=== PATIENT | male | born 1990 | race Asian ===

== ENCOUNTER → 2022-09-08 14:57 | Outpatient (CLI) | payer BC, SELFPAY ==
--- NOTE | ~2022-09-08 | XR_ITS ---
XR ankle RT 2V DATE: 09/08/2022 15:09 INDICATION: Right ankle pain. No injury. Gout. TECHNIQUE: AP and lateral views COMPARISON: 10/01/2005 right ankle FINDINGS: No fracture or dislocation of the ankle or disruption of the ankle mortise is detected. No periosteal reaction or bone destruction. Mild plantar calcaneal enthesopathy without associated erosive change or periostitis. IMPRESSION: Mild plantar calcaneal enthesopathy Reviewed, dictated and finalized at location [facility]
== END ==
PROVIDERS: PCP Emergency Medicine; Visit Provider Emergency Medicine
DX: M77.31 Calcaneal spur, right foot (principal)
CPT/HCPCS: 73600

== ENCOUNTER 2022-11-06 13:58 | Emergency (ER) | payer BC, SELFPAY ==
[2022-11-06 14:18] VITALS: BP 126/87; PULSE 94; RESP 16; TEMP 36.6; O2SAT 100
--- NOTE | 2022-11-06 14:28 | ED.BACK ---
HPI - Back Pain/Injury General Chief Complaint: Back Pain/Injury Stated Complaint: LOW BACK & NECK PAIN/TIGHTNESS Time Seen by Provider: 11/06/22 14:27 Source: patient and RN notes reviewed Mode of arrival: ambulatory Limitations: no limitations History of Present Illness HPI Narrative: 32-year-old male presents with concern for back pain. He reports he was having pain between right neck and right shoulder in the scapular area for about a week. He denies any injury or trauma. He reports 2 days ago he began having low right-sided back pain without injury. 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 Reports he has had back pain in the past, he sees a chiropractor weekly. He denies loss of bowel or bladder function, perianal anesthesia, abdominal pain. Reports he is taking Tylenol without relief MD elicited complaint: back pain Related Data Allergies Allergy/AdvReac Type Severity Reaction Status Date / Time No Known Allergies Allergy Verified 11/06/22 14:22 Review of Systems Review of Systems: CONSTITUTIONAL: Denies malaise, chills, sweats, or fever. CARDIOVASCULAR: Denies chest pain, palpitations, or edema. RESPIRATORY: Denies cough or dyspnea. GASTROINTESTINAL: Denies abdominal pain, nausea, vomiting, diarrhea, loss of bowel function GENITOURINARY: Denies dysuria, hematuria, frequency, loss of bladder function. SKIN: Denies rash or itching. MUSCULOSKELETAL: Reports right low back pain, pain in the right shoulder blade NEUROLOGIC: Denies numbness, weakness, or headache. All systems reviewed & are unremarkable except as noted in HPI and below PMFSH Comments At time of signature, agree with nursing past medical, surgical, social and family history. There is no relevant family history pertinent to the presenting complaint Exam Narrative: GENERAL: Well-appearing, well-nourished, and in no acute distress. HEAD: Normocephalic, atraumatic. EYES: PERRLA and EOMI. NECK: Supple. No lymphadenopathy. CHEST: Clear to auscultation. No respiratory distress. HEART: Regular rate and rhythm. Distal pulses palpable and equal, cap refill <3 seconds ABDOMEN: Soft, nontender, nondistended, normal active bowel sounds, no palpable or pulsatile masses. No CVA tenderness MUSCULOSKELETAL: Normal range of motion and strength in all extremities; 5/5 strength with hip flexion and extension, dorsiflexion and extension, knee flexion and extension, plantar flexion and extension. Normal sensation in dermatomal distributions with sensitivity to light touch and pain. No midline back tenderness to palpation. No paraspinal tenderness. Transfers from lying to sitting to standing. SKIN: Warm, dry, no rash. No ecchymosis, erythema, open wounds to back. NEURO: No focal deficits. Alert and oriented x3. Reflexes intact. Normal gait. PSYCH: Normal mood and affect Course Course Emergency Course: Patient is aware of diagnosis, understands and agrees to treatment plan. Anticipatory guidance given. Patient agrees to follow-up as directed and is aware of reasons to seek care at the emergency department. Portions of this record may have been created with voice recognition software Level of Care: Express Care Visit Vital Signs Vital signs: Vital Signs Temperature 97.8 F 11/06/22 14:18 Pulse Rate 94 11/06/22 14:18 Respiratory Rate 16 11/06/22 14:18 Blood Pressure 126/87 11/06/22 14:18 Pulse Oximetry 100 11/06/22 14:18 Temperature 97.8 F 11/06/22 14:18 Pulse Rate 94 11/06/22 14:18 Respiratory Rate 16 11/06/22 14:18 Blood Pressure 126/87 11/06/22 14:18 Pulse Oximetry 100 11/06/22 14:18 Reviewed. MDM - Back Pain/Injury MDM Narrative Medical decision making narrative: No risk factors or findings concerning for epidural abscess, diskitis, vertebral osteomyelitis, cord compression, cauda equina, vertebral fracture or bone malignancy, AAA, or pyelonephritis. Patient instructed to consider further imaging and workup through
== END 2022-11-06 14:38 | disposition home or self-care (01) ==
PROVIDERS: Emergency Provider Nurse Practitioner; PCP Emergency Medicine
DX: M54.50 Low back pain, unspecified (principal); M25.511 Pain in right shoulder; M10.9 Gout, unspecified
CPT/HCPCS: 99203; G0463

== ENCOUNTER 2022-12-05 10:37 | Emergency (ER) | payer BC, SELFPAY ==
[2022-12-05 10:46] VITALS: BP 137/97; PULSE 73; RESP 16; TEMP 36.3; O2SAT 100
--- NOTE | 2022-12-05 10:51 | ED.BACK ---
HPI - Back Pain/Injury General Chief Complaint: Back Pain/Injury Stated Complaint: lower back pain Time Seen by Provider: 12/05/22 10:50 Source: patient Mode of arrival: ambulatory Limitations: no limitations History of Present Illness HPI Narrative: Shyam is a 32-year-old male patient presenting to clinic today with complaints of low back pain. He reports he developed low back pain yesterday. States he sleeps in a bed with his for he was having difficult time getting out of the bed due to the back pain. No known injury. States that he is having sharp pains in his lower back and today the pain started radiating down his right leg. Pain is worse with sudden movements. He denies any saddle anesthesia or loss of bowel or bladder. Rates pain 10/10 when he has sudden movements Related Data Allergies Allergy/AdvReac Type Severity Reaction Status Date / Time No Known Allergies Allergy Verified 11/06/22 14:22 Review of Systems Review of Systems: Pertinent positives per HPI. Patient denies any fever, chills, rash, headache, visual changes, dizziness, cough, runny nose, sore throat, shortness of breath, chest pain, palpitations, nausea, vomiting, diarrhea, constipation, abdominal pain, or any urinary issues. PMFSH Comments At the time of my signature, I reviewed and agree with the nursing past medical, surgical, social, and family history. There is no relevant family history pertinent to the patient complaint. Exam Narrative: General: Well-developed, well nourished, in no apparent distress Head: Normocephalic, atraumatic. Cardio: Regular rate and rhythm, s1 and s2 normal, no murmur appreciated. Resp: Clear to auscultation bilaterally, no rhonchi, rales, wheezing or rubs. Musculoskeletal: No deformity, tender to palpation over bilateral low back paraspinous muscles, grossly normal range of motion, patellar reflex 1+ bilaterally, negative foot drop, bilateral lower muscle strength strong and equal, peripheral pulse strong, no edema, no cyanosis, normal gait and station Course Course Emergency Course: Portions of this record may have been created with voice recognition software. Level of Care: Express Care Visit Vital Signs Vital signs: Vital Signs Temperature 36.3 C L 12/05/22 10:46 Pulse Rate 73 12/05/22 10:46 Respiratory Rate 16 12/05/22 10:46 Blood Pressure 137/97 H 12/05/22 10:46 Pulse Oximetry 100 12/05/22 10:46 Temperature 36.3 C L 12/05/22 10:46 Pulse Rate 73 12/05/22 10:46 Respiratory Rate 16 12/05/22 10:46 Blood Pressure 137/97 H 12/05/22 10:46 Pulse Oximetry 100 12/05/22 10:46 Vital signs reviewed MDM - Back Pain/Injury MDM Narrative Medical decision making narrative: At the time of visit patient is resting comfortably on the exam table. I suspect patient has a low back strain with sciatica. Will send in prescription for prednisone and Flexeril. Toradol 60 mg IM given in the clinic today. Differential Diagnosis Differential diagnosis: Likely lumbar radiculopathy, sciatica, strain of lumbar region, discitis and other (Herniated disc) Discharge Plan Discharge Clinical Impression: Acute bilateral low back pain with right-sided sciatica Patient Disposition: Home, Self-Care Condition: Stable Instructions: Antibiotic Form, Sciatica (ED), Acute Low Back Pain (ED) Additional Instructions: Toradol 60 mg IM given in the clinic today for pain Take any prescription medication only as prescribed-Flexeril and prednisone Be mindful of sedation precautions given to you if taking a muscle relaxer. May use heat or ice to the affected area Consider massage or chiropractor adjustment if this was discussed with provider May use blue emu, lidocaine patches, or asper cream to affected area- do not apply heat or ice directly over cream- can cause burn. Complete appropriate back stretching exercises. Follow up with your PCP in 3-5 days if symptom persist. Prescriptions
[2022-12-05] MEDS: KETOROLAC (*BKC) 60 MG/2 ML VIAL IM (10:56)
== END 2022-12-05 11:19 | disposition home or self-care (01) ==
PROVIDERS: Emergency Provider Nurse Practitioner Family; PCP Emergency Medicine
DX: M54.41 Lumbago with sciatica, right side (principal)
CPT/HCPCS: 96372; 99213; G0463; J1885

== ENCOUNTER 2023-07-09 11:45 | Emergency (ER) | payer OTHER, SELFPAY ==
[2023-07-09 11:57] VITALS: BP 135/80; PULSE 77; RESP 16; TEMP 36.7; O2SAT 99
--- NOTE | 2023-07-09 12:25 | ED.URI ---
HPI - URI/Sore Throat General Chief Complaint: Upper Respiratory Infection Stated Complaint: SORE THROAT/COUGH/CONGESTION/JOSEPH/BODY ACHES Source: patient and RN notes reviewed History of Present Illness HPI Narrative: 32-year-old male presents to urgent care with complaints of sore throat, cough, congestion and chills. Patient states the symptoms have been going on for 2 days denies any chest pain, shortness of, vomiting diarrhea, or ear pain. Patient has been taking an [id number] cold flu medication with minimal relief. Related Data Allergies Allergy/AdvReac Type Severity Reaction Status Date / Time No Known Allergies Allergy Verified 11/06/22 14:22 Review of Systems Review of Systems: Pertinent positives and pertinent negatives per HPI. PMFSH Comments At the time of my signature, I reviewed and agree with the nursing past medical, surgical, social, and family history. There is no relevant family history pertinent to the patient complaint. Exam Narrative: GENERAL: This is a well-nourished, well-developed patient, in no apparent distress. HEAD: normocephalic, atraumatic. EYES: Sclera clear/white. Vision is grossly intact. EARS: External ears normal, auditory canals clear and without drainage, TMs normal without perforation. Hearing grossly intact. NOSE: positive congestion THROAT: Mucous membranes moist, posterior pharynx erythemic NECK: Neck supple, non-tender without lymphadenopathy, masses or thyromegaly. CARDIOVASCULAR: Regular rate and rhythm without murmurs, gallops, or rubs. RESPIRATORY: Clear to auscultation. Breath sounds equal bilaterally. No wheezes, rales, or rhonchi. SKIN: warm, intact with no suspicious lesions or rash, good texture and turgor. NEURO: awake, alert, and oriented to person, place and time. There were no obvious focal neurologic abnormalities. Course Course Level of Care: Express Care Visit Vital Signs Vital signs: Vital Signs Pulse Rate 77 07/09/23 11:57 Respiratory Rate 16 07/09/23 11:57 Blood Pressure 135/80 07/09/23 11:57 Pulse Oximetry 99 07/09/23 11:57 Pulse Rate 77 07/09/23 11:57 Respiratory Rate 16 07/09/23 11:57 Blood Pressure 135/80 07/09/23 11:57 Pulse Oximetry 99 07/09/23 11:57 Reviewed MDM - URI/Sore Throat MDM Narrative Medical decision making narrative: Viral illness may last between 7-21 days; antibiotics do not cure viral illness and are NOT recommended at this time. Also, recommend symptomatic treatment includes: rest, fluids, and increase humidity of the air at home. Recommend Acetaminophen as directed on the bottle to reduce fever, pain, headache. Please schedule a follow-up visit with your personal physician for further evaluation and treatment within 3-5days. If your symptoms persist, change or worsen significantly before you can contact your personal physician then please, without delay, go to the emergency department for further evaluation. Differential Diagnosis Differential diagnosis: Likely upper respiratory infection, sinusitis, viral infection and pharyngitis Lab Data Attestation: I reviewed the patient's lab results. Labs: Strep Screen Presumptive Negative *(Reference Range: Negative)* Critical Care Time Critical Care Time Critical Care Time: No Discharge Plan Discharge Clinical Impression: Viral infection Patient Disposition: Home, Self-Care Condition: Stable Instructions: Viral Syndrome (ED) Additional Instructions: Viral illness may last between 7-21 days; antibiotics do not cure viral illness and are NOT recommended at this time. Also, recommend symptomatic treatment includes: rest, fluids, and increase humidity of the air at home. Recommend Acetaminophen as directed on the bottle to reduce fever, pain, headache. Please schedule a follow-up visit with your personal physician for further evaluation and treatment wi
== END 2023-07-09 12:35 | disposition home or self-care (01) ==
PROVIDERS: Emergency Provider Nurse Practitioner Family; PCP Emergency Medicine
DX: B34.9 Viral infection, unspecified (principal)
CPT/HCPCS: 87081; 87880; 99213; G0463

== ENCOUNTER 2023-07-25 18:11 | Emergency (ER) | payer OTHER, SELFPAY ==
[2023-07-25 18:17] VITALS: BP 129/75; PULSE 78; RESP 20; TEMP 36.3; O2SAT 99
--- NOTE | 2023-07-25 18:39 | ED.URI ---
HPI - URI/Sore Throat General Chief Complaint: Upper Respiratory Infection Stated Complaint: BODY ACHEST/SINUS CONGESTION/COUGH/FEVER Time Seen by Provider: 07/25/23 18:33 Source: patient and RN notes reviewed Mode of arrival: ambulatory Limitations: no limitations History of Present Illness HPI Narrative: Patient presents today with a 2 day history of body aches, congestion, cough. Denies shortness of breath or chest pain. He has been taking Tylenol and NyQuil with mild relief. Reports 3-month-old child was diagnosed with COVID today. Denies history of asthma or COPD. Related Data Home Medications Medication Instructions Recorded Confirmed cetirizine 10 mg tablet (Zyrtec) 10 mg PO DAILY 07/25/23 07/25/23 Allergies Allergy/AdvReac Type Severity Reaction Status Date / Time No Known Allergies Allergy Verified 07/25/23 18:19 Review of Systems Review of Systems: CONSTITUTIONAL: Denies fever, chills, or sweats.+ body aches EYES: Denies visual changes, redness, or discharge. ENT: Denies rhinorrhea, sore throat, or otalgia.+ congestion CARDIOVASCULAR: Denies chest pain, palpitations, or edema. RESPIRATORY: Denies dyspnea.+ cough GASTROINTESTINAL: Denies abdominal pain, nausea, vomiting, or diarrhea. GENITOURINARY: Denies dysuria or hematuria. SKIN: Denies rash, itching, or wounds. MUSCULOSKELETAL: Denies back pain, joint pain, or myalgia. NEUROLOGIC: Denies headache, numbness, tingling, or weakness. PSYCH: Denies depression or anxiety. PMFSH Comments At time of signature, I have reviewed and agree with nursing past medical, surgical, social and family history unless otherwise noted. Please see nursing chart for further information. There is no relevant family history pertinent to the presenting complaint Exam Narrative: GENERAL: Mildly ill-appearing, well-nourished, and in no acute distress. HEAD: Normocephalic, atraumatic. EYES: EOMI. No redness or drainage. Conjunctivae normal. ENT: Mucous membranes pink and moist. Nares congested. No rhinorrhea. TMs normal bilaterally. Throat mildly erythematous without edema or exudate. Uvula midline. NECK: Normal AROM. Supple. No lymphadenopathy. CHEST: No respiratory distress. Clear to auscultation. HEART: Regular rate and rhythm. No murmur appreciated. EXTREMITIES: Normal range of motion. No edema. SKIN: Warm, dry, no rash. Capillary refill normal. Normal skin turgor. NEURO: No focal deficits. Alert and oriented x3. Gait steady. PSYCH: Normal affect. No signs of depression or anxiety. Course Course Level of Care: Express Care Visit Vital Signs Vital signs: Vital Signs Temperature 97.4 F L 07/25/23 18:17 Pulse Rate 78 07/25/23 18:17 Respiratory Rate 20 07/25/23 18:17 Blood Pressure 129/75 07/25/23 18:17 Pulse Oximetry 99 07/25/23 18:17 Oxygen Delivery Room Air 07/25/23 18:17 Temperature 97.4 F L 07/25/23 18:17 Pulse Rate 78 07/25/23 18:17 Respiratory Rate 07/25/23 18:17 Blood Pressure 129/75 07/25/23 18:17 Pulse Oximetry 99 07/25/23 18:17 Oxygen Delivery Room Air 07/25/23 18:17 Reviewed MDM - URI/Sore Throat MDM Narrative Medical decision making narrative: COVID-19 positive. Discussed [id number] medication for symptoms. No prescription medications indicated at this time. Anticipatory guidance given. Lab Data Attestation: I reviewed the patient's lab results. Lab results narrative: COVID-19 positive Labs: Influenza A Screen Negative Reference Range: Negative Influenza B Screen Negative Reference Range: Negative Critical Care Time Critical Care Time Critical Care Time: No Discharge Plan Discharge Clinical Impression: COVID-19 Patient Disposition: Home, Self-Care Condition: Stable Instructions: COVID-19 (Coronavirus Disease 2019)
== END 2023-07-25 18:45 | disposition home or self-care (01) ==
PROVIDERS: Emergency Provider Nurse Practitioner; PCP Emergency Medicine
DX: U07.1 COVID-19 (principal)
CPT/HCPCS: 87426; 87804; 99213; C9803; G0463

== ENCOUNTER 2023-11-25 12:51 | Emergency (ER) | payer OTHER, SELFPAY ==
[2023-11-25 13:04] VITALS: BP 131/88; PULSE 94; RESP 16; TEMP 36.9; O2SAT 98
--- NOTE | 2023-11-25 13:14 | ED.LOWEXIN ---
HPI - Extremity Injury (Lower) General Chief Complaint: Extremity Injury, Lower Stated Complaint: Right Ankle Pain Source: patient and RN notes reviewed Mode of arrival: ambulatory Limitations: no limitations History of Present Illness HPI Narrative: 33-year-old male presents with concern for 2 day history of gout pain to the right ankle. Reports history of gout. Reports pain worsened after working on last night with redness, swelling, warmth. Denies fever, injury. MD complaint: ankle injury Related Data Home Medications Medication Instructions Recorded Confirmed cetirizine 10 mg tablet (Zyrtec) 10 mg PO DAILY 07/25/23 11/25/23 Allergies Allergy/AdvReac Type Severity Reaction Status Date / Time No Known Allergies Allergy Verified 11/25/23 12:58 Review of Systems Review of Systems: CONSTITUTIONAL: Denies malaise, chills, sweats, or fever. CARDIOVASCULAR: Denies chest pain, palpitations, or edema. RESPIRATORY: Denies cough or dyspnea. SKIN: Denies rash or itching, bruising, redness MUSCULOSKELETAL: Reports redness, swelling, pain to the right ankle NEUROLOGIC: Denies numbness, weakness All systems reviewed & are unremarkable except as noted in HPI and below PMFSH Comments At time of signature, agree with nursing past medical, surgical, social and family history. There is no relevant family history pertinent to the presenting complaint Exam Narrative: GENERAL: Well-appearing, well-nourished, and in no acute distress. HEAD: Normocephalic, atraumatic. EYES: PERRLA, conjunctivae clear NECK: Supple. CHEST: Speaks in full sentences. No respiratory distress. HEART: Regular rate and rhythm. Normal and equal peripheral pulses. EXTREMITIES: Right ankle, foot, digits grossly normal strength and sensation, normal range of motion. Mild edema, warmth, no ecchymosis. Normal sensation with sensitivity to light touch and pain. No point tenderness. No open wounds, no skin tenting, no devitalized tissue or atrophy, no trophic changes, no obvious deformity, alignment normal, nearby joints and structures intact. Distal pulses palpable and equal bilaterally, skin warm, dry, pink. Capillary refill less than 3 seconds. SKIN: Warm, dry, no rash. NEURO: Alert and oriented x3. PSYCH: Normal mood and affect Course Course Emergency Course: Patient is aware of diagnosis, understands and agrees to treatment plan. Anticipatory guidance given. Patient agrees to follow-up as directed and is aware of reasons to seek care at the emergency department. Portions of this record may have been created with voice recognition software Level of Care: Express Care Visit Vital Signs Vital signs: Vital Signs Temperature 98.4 F 11/25/23 13:04 Pulse Rate 94 11/25/23 13:04 Respiratory Rate 16 11/25/23 13:04 Blood Pressure 131/88 11/25/23 13:04 Pulse Oximetry 98 11/25/23 13:04 Temperature 98.4 F 11/25/23 13:04 Pulse Rate 94 11/25/23 13:04 Respiratory Rate 16 11/25/23 13:04 Blood Pressure 131/88 11/25/23 13:04 Pulse Oximetry 98 11/25/23 13:04 Reviewed. MDM - Extremity Injury (Lower) MDM Narrative Medical decision making narrative: Exam findings show no acute concerns or changes; patient is non-toxic appearing and is in no distress. Patient is appropriate for outpatient treatment and follow-up. Critical Care Time Critical Care Time Critical Care Time: No Discharge Plan Discharge Clinical Impression: Gout Patient Disposition: Home, Self-Care Condition: Stable Instructions: Gout (ED) Additional Instructions: 1) Please follow-up with your primary care doctor in the next 1-2 days. 2) If you have any worsening of symptoms or any other urgent concerns please go to the ER. 3) Please take medications as prescribed and continue taking your home medications as usual. 4) Please read and follow information included in discharge instructions. Prescriptions: New colchicine 0.6 mg capsule
== END 2023-11-25 13:33 | disposition home or self-care (01) ==
PROVIDERS: Emergency Provider Nurse Practitioner; PCP Emergency Medicine
DX: M10.9 Gout, unspecified (principal); M19.90 Unspecified osteoarthritis, unspecified site
CPT/HCPCS: 99213; G0463

== ENCOUNTER 2024-03-01 08:30 | Emergency (ER) | payer OTHER, SELFPAY ==
[2024-03-01 08:45] VITALS: BP 130/75; PULSE 98; RESP 16; TEMP 37.1; O2SAT 99
--- NOTE | 2024-03-01 08:50 | ED.URI ---
HPI - URI/Sore Throat General Chief Complaint: Upper Respiratory Infection Stated Complaint: Sore Throat Time Seen by Provider: 03/01/24 08:50 Source: patient, RN notes reviewed and old records reviewed Mode of arrival: ambulatory Limitations: no limitations History of Present Illness HPI Narrative: 33 year old male with complaints of sore throat for the past 3 days which is burning with increased pain with swallowing with some occasional cough noted. Patient reports that he has not had any fevers but feels fatigued and does not feel well. Patient reports that he has been taking his daily Zyrtec but has not taken any other OTC medications for his symptoms. MD elicited complaint: sore throat Pertinent past history: other (sinus problems) Onset (ago): day(s) (3) Consistency: constant Pain scale (0-10): 7 Able to tolerate fluids by mouth: Yes Exacerbating factors: swallowing Treatments prior to arrival: other (Zyrtec) Related Data Home Medications Medication Instructions Recorded Confirmed cetirizine 10 mg tablet (Zyrtec) 10 mg PO DAILY 07/25/23 03/01/24 Allergies Allergy/AdvReac Type Severity Reaction Status Date / Time No Known Allergies Allergy Verified 03/01/24 08:43 Review of Systems Review of Systems: CONSTITUTIONAL: Reports malaise, no chills, sweats, or fever, states fatigue EYES: Denies visual changes, redness, or discharge. ENT: Reports rhinorrhea, congestion, no sinus pain,no otalgia and positive sore throat. CARDIOVASCULAR: Denies chest pain, palpitations, or edema. RESPIRATORY: Reports occasional cough.? Denies dyspnea. GASTROINTESTINAL: Denies abdominal pain, nausea, vomiting, diarrhea SKIN: Denies rash or itching. MUSCULOSKELETAL: Denies myalgia. NEUROLOGIC: Denies headache. All systems reviewed & are unremarkable except as noted in HPI and below PMFSH Past Medical History Medical History (Updated 03/01/24 @ 09:12 by Setlla Marie NP) Arthritis Fx wrist Gout History of sinus problem Otitis media Pneumonia Surgical History Surgical History H/O hemorrhoidectomy Social History Social History (Updated 03/01/24 @ 09:12 by Stella Marie NP) Smoking packs per day: 0.5 Smoking cigarettes per day: 10.0 Smoking status: Current every day smoker Tobacco type: cigarettes Alcohol intake: current Alcohol use details: social Substance use type: does not use Living arrangements: with family Gender identity (if verbalized by the patient): Male Comments At time of signature, agree with nursing past medical, surgical, social and family history. There is no relevant family history pertinent to the presenting complaint Exam Narrative: GENERAL: Well-appearing, well-nourished, and in no acute distress. HEAD: Normocephalic EYES: PERRLA, conjunctivae clear ENT: Nares clear, turbinates edematous and erythematous, clear discharge. Mucous membranes moist. TM pearly clemons with dull light reflex bilaterally; no tragal tenderness. Oropharynx erythematous without lesions. Tonsils red enlarged and without exudate, no drooling, no hoarseness, no trismus, uvula midline.some post nasal drainage. NECK: Supple. lymphadenopathy CHEST: Clear to auscultation, breath sounds equal. No wheezing, rhonchi, rales, or stridor. No respiratory distress, speaks in full sentences.occasional cough noted SAO2 99% on room air HEART: Regular rate and rhythm. No murmur heard. SKIN: Warm, dry, no rash. NEURO: Alert and oriented x3. PSYCH: Normal mood and affect Course Course Emergency Course: Patient is aware of diagnosis, understands and agrees to treatment plan.? Anticipatory guidance given.? Patient agrees to follow-up as directed and is aware of reasons to seek care at the emergency department. Portions of this record may have been created with voice recognition software Level of Care: [facility] Visit V
== END 2024-03-01 09:08 | disposition home or self-care (01) ==
PROVIDERS: Emergency Provider Registered Nurse; PCP Emergency Medicine
DX: J02.9 Acute pharyngitis, unspecified (principal); F17.210 Nicotine dependence, cigarettes, uncomplicated; M19.90 Unspecified osteoarthritis, unspecified site; M10.9 Gout, unspecified
CPT/HCPCS: 87081; 87880; 99213; G0463

== ENCOUNTER 2024-11-20 09:22 | Emergency (ER) | payer OTHER, SELFPAY ==
--- NOTE | ~2024-11-20 | XR_ITS ---
XR lumbar spine 2-3V 11/20/2024 09:41 Indication: Low back pain for 5 days Procedure: 3 views lumbar spine Comparison: No prior studies for comparison. Findings: Vertebral body heights are maintained. Normal lumbar lordosis. Pedicles intact. Transverse processes are normal. Sacral foramen are symmetric. There is disc narrowing and endplate hypertrophy at L4-5 and L5-S1 L5-S1. No evidence for spondylolisthesis. Impression: 1: Mild lumbar spondylosis. Reviewed, dictated and finalized at location B. Impression: 1: Mild lumbar spondylosis.
--- NOTE | 2024-11-20 09:25 | ED.BACK ---
HPI - Back Pain/Injury General Chief Complaint: Back Pain/Injury Stated Complaint: LOW BACK PAIN Source: patient and RN notes reviewed Mode of arrival: ambulatory Limitations: no limitations History of Present Illness HPI Narrative: Patient is a 34-year-old male that presents to the [facility] with complaints of right-sided low back pain. He states that the pain has been present for the last few days. It increases in severity with ambulating and movement. He denies numbness. Denies dysfunction of bladder or bowel. Denies urinary symptoms. Denies known injury but states that he frequently lifts shingles at work. Related Data Home Medications ?Medication ?Instructions ?Recorded ?Confirmed ?Last Taken ?Type cetirizine 10 mg tablet (Zyrtec) 10 mg PO DAILY 07/25/23 03/01/24 Unknown History Allergies Allergy/AdvReac Type Severity Reaction Status Date / Time No Known Allergies Allergy Verified 03/01/24 08:43 Review of Systems Review of Systems: CONSTITUTIONAL: Denies fever, chills, or sweats. EYES: Denies visual changes, redness, or discharge. ENT: Denies otalgia and sore throat CARDIOVASCULAR: Denies chest pain, palpitations, or edema. RESPIRATORY: Denies cough or dyspnea. GASTROINTESTINAL: Denies abdominal pain, nausea, vomiting, or diarrhea. GENITOURINARY: Denies dysuria or hematuria. SKIN: Denies rash or itching. MUSCULOSKELETAL: Denies myalgia. Reports back pain. NEUROLOGIC: Denies headache, numbness, or weakness. Pertinent positives per HPI. [facility] Past Medical History Medical History Arthritis History of sinus problem Fx wrist Otitis media Pneumonia Gout Surgical History Surgical History H/O hemorrhoidectomy Social History Social History Smoking packs per day: 0.5 Smoking cigarettes per day: 10.0 Smoking status: Current every day smoker Tobacco type: cigarettes Alcohol intake: current Alcohol use details: social Substance use type: does not use Living arrangements: with family Gender identity (if verbalized by the patient): Male Comments At the time of my signature, I reviewed and agree with the nursing past medical, surgical, social, and family history. There is no relevant family history pertinent to the patient complaint. Exam Narrative: GENERAL: This is a well-nourished, well-developed patient, in no apparent distress. HEAD: normocephalic, atraumatic. EYES: Sclera clear/white. Vision is grossly intact. EARS: External ears normal. Hearing grossly intact. NOSE: External nose normal with no obvious nasal discharge, nares without redness, no rhinorrhea. THROAT: Mucous membranes moist, posterior pharynx clear. NECK: Neck supple, non-tender without lymphadenopathy, masses or thyromegaly. CARDIOVASCULAR: Regular rate and rhythm without murmurs, gallops, or rubs. RESPIRATORY: Clear to auscultation. Breath sounds equal bilaterally. No wheezes, rales, or rhonchi. GASTROINTESTINAL: Abdomen soft, non-tender, nondistended. Bowel sounds are active. No hepato-splenomegaly, or palpable masses. No guarding. SKIN: warm, intact with no suspicious lesions or rash, good texture and turgor. NEURO: awake, alert, and oriented to person, place and time. There were no obvious focal neurologic abnormalities. EXTREMITIES: No clubbing, cyanosis, or edema. No joint tenderness, effusion, or edema noted. BACK: Tenderness in the paraspinous muscles in the lumbar area. No tenderness over the spinous processes of the lumbar vertebrae. LEGS: Normal strength including dorsi-flexion and plantar flexion of the feet. Positive right straight leg test, normal and symmetrical knee and ankle reflexes. Course Course Level of Care: Express Care Visit Vital Signs Vital signs: Vital Signs Temperature 97 F L 11/20/24 09:30 Pulse Rate 72 11/20/24 09:30 Respiratory Rate 16 11/20/24 09:30 Blood Pressure 126/83 11/20/24 09:30 Pulse Oximetry 100 11/20/24 09:30 Temperature 97 F L 11/20/24 09:30 Pulse Rate 72 11/20/24 09:30 Respiratory Rate 16 11/20/24 09:30 Blood Pressure 126/83 11/20/24 09:30 Pulse Oximetry 100 11/20/24 09:30 Reviewed MDM - Back Pain/Injury MDM Narrative Medical decision making narrative: Use the RICE method at home. May take ibuprofen and/or Tylenol if needed. If symptoms persist in 1 week after conservative treatment, follow-up with specialist. Differential Diagnosis Differential diagnosis: Likely lumbar radiculopathy, sciatica and strain of lumbar region Imaging Data Attestation: I personally reviewed and interpreted this imaging study as follows: Radiologist's impression: ? Magaly Mack APRN [facility] ?2? All Patients ?2? [place] ?4? [place] ?1? [place] ?2? [facility] GE Room 2? 34m? 4? ?? [facility] [place]? Shyam Benson? 34? ?? Back Pain/Injury? In Room? REG ER? Sami Shane? Magaly Mack ? Aye Back Injury/Pain ED: Draft? Order BP 126/83 Pulse 72 Resp 16 Temp 97 F O2 Sat 100% XR lumbar ... [facility] Room 2? 1h 55m? 4? ?? [facility] [place]? Doroteo Gerber W? 50? ?? Ear? Ready for Discharge? REG ER? Sami Shane? Magaly Mack ? Aye Ear ED: Draft? Order BP 161/97 Pulse 66 Resp 16 Temp 98 F O2 Sat 98% XR lumbar spine 2-3V Stat Shyam Benson??34??M??1990 ? Allergy/Adv: No Known Allergies Close Imaging ACTIVITY DATE EXAM STATUS AUTHOR 11/20/24 09:49 Lumbar Spine X-Ray Signed Coleman Cleary Imaging Reports Close Lumbar Spine X-Ray (Signed) Coleman Cleary - 11/20/24 Launch?Image [facility] [place] [address] [facility] [place] [address] XRay Report Signed Patient: Ritika Bensoni Hansel : 1990 MR#: [id number] Age: 34 Acct:[id number] Loc: [facility] ADM Date: 11/20/24Attending Dr: Ordering Physician: Magaly Mack APRN Date of Service: 11/20/24 Procedure(s): XR lumbar spine 2-3V Accession Number(s): [id number] cc: Magaly Mack APRN; Sami Shane MD~ XR lumbar spine 2-3V 11/20/2024 09:41 Indication: Low back pain for 5 days Procedure: 3 views lumbar spine Comparison: No prior studies for comparison. Findings: Vertebral body heights are maintained. Normal lumbar lordosis. Pedicles intact. Transverse processes are normal. Sacral foramen are symmetric. There is disc narrowing and endplate hypertrophy at L4-5 and L5-S1 L5-S1. No evidence for spondylolisthesis. Impression: 1: Mild lumbar spondylosis. Reviewed, dictated and finalized at location B. Please be advised this is a medical document. It is intended for [id number] communication. It is written in medical language and may contain unfamiliar abbreviations or verbiage. Medical documents are intended to carry relevant information, facts as evident, and the clinical opinion of the practitioner at the time of the encounter. This report may have been done utilizing a voice recognition system. Attempts have been made to correct errors. However, there may be uncorrected grammatical, spelling, and recognition errors present. The file time of this note does not necessarily represent the time of service. Dictated By: Coleman Cleary MD 11/20/24 0949 Signed By: <Electronically signed by Coleman Cleary MD in OV> 11/20/24 0952 Critical Care Time Critical Care Time Critical Care Time: No Discharge Plan Discharge Clinical Impression: Acute right-sided low back pain with right-sided sciatica Patient Disposition: Home, Self-Care Condition: Stable Instructions: Acute Low Back Pain (ED), P.R.I.C.E. Treatment (ED) Additional Instructions: Use the RICE method at home. May take ibuprofen and/or Tylenol if needed. If symptoms persist in 1 week after conservative treatment, follow-up with specialist. Patient Language: Cambodian Prescriptions: New dexamethasone 4 mg tablet 4 mg PO DAILY 5 Days Qty: 5 0RF cyclobenzaprine 10 mg tablet 10 mg PO HS PRN (Reason: muscle spasm) Qty: 20 0RF naproxen 500 mg tablet 500 mg PO BID PRN (Reason: pain) Qty: 30 0RF No Action cetirizine [Zyrtec] 10 mg Tablet 10 mg PO DAILY amoxicillin 875 mg tablet 875 mg PO Q12H Qty: 20 0RF Follow-up/Referrals: Sami Shane MD [Primary Care Provider] - Time of Disposition: 10:00
[2024-11-20 09:30] VITALS: BP 126/83; PULSE 72; RESP 16; TEMP 36.1; O2SAT 100
== END 2024-11-20 10:04 | disposition home or self-care (01) ==
PROVIDERS: Emergency Provider Nurse Practitioner; PCP Emergency Medicine
DX: M54.41 Lumbago with sciatica, right side (principal); F17.210 Nicotine dependence, cigarettes, uncomplicated; M19.90 Unspecified osteoarthritis, unspecified site; M10.9 Gout, unspecified
CPT/HCPCS: 72100; 99213; G0463

== ENCOUNTER 2024-11-27 12:52 | Emergency (ER) | payer OTHER, SELFPAY ==
[2024-11-27 12:57] VITALS: BP 136/80; PULSE 104; RESP 16; TEMP 36.2; O2SAT 97
--- NOTE | 2024-11-27 13:15 | ED.BACK ---
HPI - Back Pain/Injury General Chief Complaint: Back Pain/Injury Stated Complaint: Lower Back Pain Time Seen by Provider: 11/27/24 13:20 Source: patient, RN notes reviewed and old records reviewed Mode of arrival: ambulatory Limitations: no limitations History of Present Illness MD elicited complaint: back pain Pertinent past history: prior back pain Treatments prior to arrival: NSAIDS and other (took steroids for 5 days from 11/20/2024, Flexeril,and Naproxen) Related Data Home Medications ?Medication ?Instructions ?Recorded ?Confirmed ?Last Taken ?Type cetirizine 10 mg tablet (Zyrtec) 10 mg PO DAILY 07/25/23 03/01/24 Unknown History Allergies Allergy/AdvReac Type Severity Reaction Status Date / Time No Known Allergies Allergy Verified 11/27/24 13:18 Review of Systems Review of Systems: CONSTITUTIONAL: Denies fever, chills, or sweats. EYES: Denies visual changes, redness, or discharge. ENT: Denies rhinorrhea, congestion, sore throat, or otalgia. CARDIOVASCULAR: Denies chest pain, palpitations, or edema. RESPIRATORY: Denies cough or dyspnea. GASTROINTESTINAL: Denies abdominal pain, nausea, vomiting, or diarrhea. GENITOURINARY: Denies dysuria or hematuria. SKIN: Denies rash or itching. MUSCULOSKELETAL: Denies back pain, joint pain, or myalgia. NEUROLOGIC: Denies headache, numbness, or weakness. PSYCHIATRIC: Denies anxiety or depression. All systems reviewed & are unremarkable except as noted in HPI and below PMFSH Past Medical History Medical History Arthritis History of sinus problem Fx wrist Otitis media Pneumonia Gout Surgical History Surgical History H/O hemorrhoidectomy Social History Social History Smoking packs per day: 0.5 Smoking cigarettes per day: 10.0 Smoking status: Current every day smoker Tobacco type: cigarettes Alcohol intake: current Alcohol use details: social Substance use type: does not use Living arrangements: with family Gender identity (if verbalized by the patient): Male Comments At time of signature, agree with nursing past medical, surgical, social and family history. There is no relevant family history pertinent to the presenting complaint Exam Narrative: GENERAL: Well-appearing, well-nourished, and in no acute distress. HEAD: Normocephalic, atraumatic. EYES: PERRLA and EOMI. ENT: Nares clear, no rhinorrhea or epistaxis. Mucous membranes moist. NECK: Supple. CHEST: Clear to auscultation. No respiratory distress. HEART: Regular rate and rhythm. No murmur heard. Normal peripheral pulses. ABDOMEN: Soft, nontender, nondistended, normal active bowel sounds. EXTREMITIES: Normal range of motion. No edema. SKIN: Warm, dry, no rash. NEURO: No focal deficits. Alert and oriented x3. Course Course Emergency Course: Patient is aware of diagnosis, understands and agrees to treatment plan.? Anticipatory guidance given.? Patient agrees to follow-up as directed and is aware of reasons to seek care at the emergency department. Portions of this record may have been created with voice recognition software Level of Care: Express Care Visit Vital Signs Vital signs: Vital Signs Temperature 36.2 C L 11/27/24 12:57 Pulse Rate 104 H 11/27/24 12:57 Respiratory Rate 16 11/27/24 12:57 Blood Pressure 136/80 11/27/24 12:57 Pulse Oximetry 97 11/27/24 12:57 Temperature 36.2 C L 11/27/24 12:57 Pulse Rate 104 H 11/27/24 12:57 Respiratory Rate 16 11/27/24 12:57 Blood Pressure 136/80 11/27/24 12:57 Pulse Oximetry 97 11/27/24 12:57 Reviewed Discharge Plan Discharge Clinical Impression: Low back pain Qualifiers: Chronicity: acute Back pain laterality: bilateral Sciatica presence: without sciatica Qualified Code(s): M54.50 - Low back pain, unspecified Patient Disposition: Home, Self-Care Condition: Stable Instructions: Antibiotic Form, Low Back Strain (ED) Additional Instructions: Ice and heat to the area for 20-30 minutes Gentle stretching exercises Gentle massage Caution with lifting, bending, stooping, twisting Avoid pushing, pulling take muscle relaxants as directed--caution drowsiness and no driving or alcohol Anti-inflammatory medicine as directed--take with food take Ibuprofen or Naproxen as needed for pain He may take the muscle relaxant and anti-inflammatory at the same time Follow-up with your PCP if not improving in 5-7 days If your symptoms persist, change or worsen significantly before you can contact your personal physician then please, without delay, go to the emergency department for further evaluation. Follow-up with PCP in 7-10 days or sooner if needed Follow up with PCP soon in regards to your blood pressure which is elevated above threshold for referral. Blood pressure above 120/80 may indicate pre-hypertension.136/80 Follow up with your PCP for further testing and possible referral Patient Language: Greenlandic Prescriptions: New cyclobenzaprine 10 mg tablet 10 mg PO HS PRN (Reason: muscle spasm) Qty: 20 0RF Rx Instructions: at bedtime prednisone 20 mg tablet 40 mg PO DAILY Qty: 10 0RF No Action cetirizine [Zyrtec] 10 mg Tablet 10 mg PO DAILY amoxicillin 875 mg tablet 875 mg PO Q12H Qty: 20 0RF Follow-up/Referrals: PHYSICIAN,PROCUREMENT SERVICES MANAGER [Primary Care Provider] - Time of Disposition: 13:48 Quality Omar Coma Scale Eyes: Open Verbal: Oriented and Alert Motor: Follows Commands Omar Coma Total Score: 15
[2024-11-27] MEDS: KETOROLAC (*BKC) 60 MG/2 ML VIAL IM (13:36)
== END 2024-11-27 13:53 | disposition home or self-care (01) ==
PROVIDERS: Emergency Provider Registered Nurse
DX: M54.50 Low back pain, unspecified (principal); F17.210 Nicotine dependence, cigarettes, uncomplicated
CPT/HCPCS: 96372; 99213; G0463; J1885